=== PATIENT | male | born 1960 | race African-American/Black ===

== ENCOUNTER 2019-01-08 10:54 | Emergency (ER) | payer OTHER ==
--- NOTE | 2019-01-08 11:41 | RAD ---
XR Knee Rt 4 View STANDARD History: Surgery. Cannot bear weight. Comparison: None. Findings: There is antibiotic implanted cemented in the explanted knee arthroplasty site. Large joint effusion. Heterotopic ossification along the superior joint capsule. No acute fracture. Old injury of the lateral tibial rim. Numerous soft tissue phleboliths. Impression: Very large joint effusion suggesting infection given the antibiotic cement placement with in the explanted knee arthroplasty site.
== END 2019-01-08 12:33 | disposition home or self-care (01) ==
LOC: EEVIPCON 10:54 → ERS 10:54
DX: M25.561 Pain in right knee (principal); I10 Essential (primary) hypertension; F20.9 Schizophrenia, unspecified; F32.9 Major depressive disorder, single episode, unspecified; F41.9 Anxiety disorder, unspecified; F43.10 Post-traumatic stress disorder, unspecified